=== PATIENT | female | born 1995 | race Caucasian/White ===

== ENCOUNTER 2016-10-22 19:20 | Emergency (ER) | payer BC ==
[2016-10-22] MEDS ORDERED: HYDROCODONE/ACETAMINOPHEN 5-325 MG TABLET PO ONE (20:02)
[2016-10-22] MEDS ORDERED: ONDANSETRON 4 MG TAB.RAPDIS SL ONE (20:02)
--- NOTE | 2016-10-22 20:04 | ER Document Report ---
ED Medical Screen (RME) - General Chief Complaint: BLOOD IN STOOL Stated Complaint: ABDOMINAL PAIN Time Seen by Provider: 10/22/16 19:59 Mode of Arrival: Ambulatory Information source: Patient TRAVEL OUTSIDE OF THE [place] IN LAST 30 DAYS: No - HPI Patient complains to provider of: Diarrhea, bloody stools, crampy abdominal pain Onset: Other - 3 days Onset/Duration: Gradual, Persistent Quality of pain: Achy, Cramping Severity: Moderate Pain Level: 3 Associated Symptoms: Diarrhea Notes: 10/22/16 20:03 Patient is a 21-year-old female who presents to the emergency room complaining of 3 day history of diarrhea with crampy abdominal pain and blood in stools Past Medical History Renal/ Medical History: Denies: Hx Peritoneal Dialysis Physical Exam - Vital signs Vitals: Temp Pulse Resp BP Pulse Ox 99.3 F 86 16 128/87 H 97 10/22/16 19:24 10/22/16 19:24 10/22/16 19:24 10/22/16 19:24 10/22/16 19:24 Course - Vital Signs Vital signs: Temp Pulse Resp BP Pulse Ox 99.3 F 86 16 128/87 H 97 10/22/16 19:26 10/22/16 19:26 10/22/16 19:26 10/22/16 19:26 10/22/16 19:26
[2016-10-22 20:31] LABS: ABSOLUTE BASOPHILS # (AUTO) 0.1 10^3/uL (0.0-0.2); ABSOLUTE EOSINOPHILS # (AUTO) 0.4 10^3/uL (0.0-0.6); ABSOLUTE LYMPHOCYTES (AUTO) 2.5 10^3/uL (0.5-4.7); ABSOLUTE MONOCYTES (AUTO) 0.7 10^3/uL (0.1-1.4); ABSOLUTE NEUT (AUTO) 5.4 10^3/uL (1.7-8.2); BASOPHILS % (AUTO) 0.7 % (0-2); EOSINOPHILS % (AUTO) 4.9 % (0-6); HEMATOCRIT 41.6 % (36.0-47.0); HEMOGLOBIN 14.1 g/dL (12.0-15.5); HGB HCT DIFFERENCE 0.7; LYMPHOCYTES % (AUTO) 27.7 % (13-45); MEAN CORPUSCULAR HEMOGLOBIN 29.6 pg (27.0-33.4); MEAN CORPUSCULAR HGB CONC 33.9 g/dL (32.0-36.0); MEAN CORPUSCULAR VOLUME 87 fl (80-97); MONOCYTES % (AUTO) 7.8 % (3-13); RED BLOOD COUNT 4.76 10^6/uL (3.72-5.28); RED CELL DISTRIBUTION WIDTH 13.3 % (11.5-14.0); SEGMENTED NEUTROPHILS % (AUTO) 58.9 % (42-78); WHITE BLOOD COUNT 9.1 10^3/uL (4.0-10.5)
[2016-10-22 20:36] LABS: APPEARANCE,URINE SLIGHTLY-CLOUDY; BILIRUBIN,URINE NEGATIVE (NEGATIVE); GLUCOSE, URINE NEGATIVE (NEGATIVE); KETONES,URINE TRACE mg/dL (NEGATIVE); LEUKOCYTE ESTERASE,URINE MODERATE (NEGATIVE); NITRITE,URINE NEGATIVE (NEGATIVE); PROTEIN,URINE NEGATIVE (NEGATIVE); URINE SPECIFIC GRAVITY 1.013; UROBILINOGEN,URINE NEGATIVE mg/dL (<2.0)
[2016-10-22 20:50] LABS: ALANINE AMINOTRANSFERASE 22 U/L (9-52); ALBUMIN 4.1 g/dL (3.5-5.0); ALKALINE PHOSPHATASE 108 U/L (38-126); ANION GAP 11 (5-19); ASPARTATE AMINO TRANSFERASE 20 U/L (14-36); BILIRUBIN,DIRECT 0.3 mg/dL (0.0-0.4); BILIRUBIN,TOTAL 0.6 mg/dL (0.2-1.3); BLOOD UREA NITROGEN 8 mg/dL (7-20); CALCIUM 9.6 mg/dL (8.4-10.2); CARBON DIOXIDE 24 mmol/L (22-30); CHLORIDE 103 mmol/L (98-107); CREATININE RESULT 0.64 mg/dL (0.52-1.25); GLUCOSE 88 mg/dL (75-110); LIPASE 70.4 U/L (23-300); POTASSIUM 4.4 mmol/L (3.6-5.0); SODIUM 138.3 mmol/L (137-145); TOTAL PROTEIN 7.3 g/dL (6.3-8.2)
[2016-10-22] MEDS ORDERED: CIPROFLOXACIN HCL 500 MG TABLET PO ONE (22:49)
[2016-10-22] MEDS ORDERED: DICYCLOMINE HCL 20 MG TABLET PO ONE (22:49)
[2016-10-22] MEDS ORDERED: ONDANSETRON ODT 4 MG TAB (6 TAB/DSPK) PO PRN (22:49)
--- NOTE | 2016-10-22 22:50 | ER Document Report ---
ED General - General Chief Complaint: BLOOD IN STOOL Stated Complaint: ABDOMINAL PAIN Time Seen by Provider: 10/22/16 19:59 Mode of Arrival: Ambulatory Notes: Patient is a 21 year old female who presents with complaint of diarrhea that began 3 days age. She initially had watery stools followed by abdominal cramping. this has since progressed to passing of some blood per rectum today. No fevers, Some nausea. no vomiting. No family history of Crohns or ulcerative colitis. No travel outside the TRAVEL OUTSIDE OF THE [place] IN LAST 30 DAYS: No Past Medical History - General Information source: Patient - Social History Smoking Status: Never Smoker Chew tobacco use (# tins/day): No Frequency of alcohol use: Occasional Drug Abuse: None Family History: Reviewed & Not Pertinent Patient has suicidal ideation: No Patient has homicidal ideation: No Renal/ Medical History: Denies: Hx Peritoneal Dialysis Physical Exam - Vital signs Vitals: Temp Pulse Resp BP Pulse Ox 99.3 F 86 16 128/87 H 97 10/22/16 19:24 10/22/16 19:24 10/22/16 19:24 10/22/16 19:24 10/22/16 19:24 Course - Re-evaluation Re-evalutation: 10/23/16 06:43 Patient's laboratory evaluation is unremarkable. Being that she is having some blood with her diarrhea I will cover for possible bacterial etiologies. She has not been on any recent antibiotics and therefore not concerned for C. difficile. I will place her on Cipro. Encouraged her to return to ER in 3 days if she still having any blood in her stool, any recurrent pain, or fevers. I encouraged her return to ER immediately if she has worsening pain, fevers, or increasing blood in her stool. Patient agrees with plan will be discharged home. Dictation of this chart was performed using voice recognition software; therefore, there may be some unintended grammatical errors. - Vital Signs Vital signs: Temp Pulse Resp BP Pulse Ox 99.2 F 84 17 128/84 H 100 10/22/16 23:13 10/22/16 23:13 10/22/16 23:13 10/22/16 23:13 10/22/16 23:13 - Laboratory Result Diagrams: 10/22/16 20:18 10/22/16 20:18 Laboratory results interpreted by me: 10/22/16 20:18 Urine Ketones TRACE H Ur Leukocyte Esterase MODERATE H Discharge - Discharge Clinical Impression: Hematochezia Diarrhea Qualifiers: Diarrhea type: unspecified type Qualified Code(s): R19.7 - Diarrhea, unspecified Condition: Stable Disposition: HOME, SELF-CARE Additional Instructions: Your blood work today showed no significant abnormalities. We are starting you on an antibiotic being that you are having some blood with the diarrhea. Please take this antibiotic as prescribed. Please return to the ER immediately if you develop fevers, vomiting, worsening abdominal pain, or worsening or increasing bloody stools. Please return to the ER in 3 days if your symptoms are not improving Prescriptions: Ciprofloxacin HCl [Cipro 500 mg Tablet] 500 mg PO BID #14 tablet Dicyclomine HCl [Bentyl 20 mg Tablet] 20 mg PO QID #40 tablet Forms: Return to Work
[2016-10-22 23:16] VITALS: BP 128/84
== END 2016-10-22 23:13 | disposition home or self-care (01) ==
LOC: ER 19:20
DX: K92.1 Melena (principal); R19.7 Diarrhea, unspecified; R19.5 Other fecal abnormalities
CPT/HCPCS: 99284; 36415; 87086; 83690; 84703; 85025; 80053; 81001; J3490; S0119

== ENCOUNTER 2017-10-08 03:50 | Emergency (ER) | payer BC ==
[2017-10-08] MEDS ORDERED: NORMAL SALINE 1000 ML 1,000 ML IV ONE ×2 (05:05→06:16)
[2017-10-08] MEDS ORDERED: ONDANSETRON HCL INJ/PF 4 MG/2 ML SDV IV ONE (05:18)
[2017-10-08 05:23] LABS: ABSOLUTE EOSINOPHILS # (AUTO) 0.1 10^3/uL (0.0-0.6); ABSOLUTE LYMPHOCYTES (AUTO) 1.2 10^3/uL (0.5-4.7); ABSOLUTE MONOCYTES (AUTO) 0.8 10^3/uL (0.1-1.4); ABSOLUTE NEUT (AUTO) 9.3 10^3/uL (1.7-8.2); BASOPHILS % (AUTO) 0.4 % (0-2); EOSINOPHILS % (AUTO) 0.6 % (0-6); HEMATOCRIT 40.6 % (36.0-47.0); HEMOGLOBIN 13.8 g/dL (12.0-15.5); LYMPHOCYTES % (AUTO) 10.5 % (13-45); MEAN CORPUSCULAR HEMOGLOBIN 29.3 pg (27.0-33.4); MEAN CORPUSCULAR HGB CONC 34.1 g/dL (32.0-36.0); MEAN CORPUSCULAR VOLUME 86 fl (80-97); MONOCYTES % (AUTO) 6.7 % (3-13); PLATELET COUNT 373 10^3/uL (150-450); RED BLOOD COUNT 4.73 10^6/uL (3.72-5.28); RED CELL DISTRIBUTION WIDTH 12.6 % (11.5-14.0); SEGMENTED NEUTROPHILS % (AUTO) 81.8 % (42-78); TOTAL CELLS COUNTED % (AUTO) 100 %; WHITE BLOOD COUNT 11.4 10^3/uL (4.0-10.5)
[2017-10-08 05:43] LABS: ALANINE AMINOTRANSFERASE 28 U/L (9-52); ALBUMIN 4.4 g/dL (3.5-5.0); ALKALINE PHOSPHATASE 96 U/L (38-126); ANION GAP 18 (5-19); ASPARTATE AMINO TRANSFERASE 23 U/L (14-36); BILIRUBIN,DIRECT 0.2 mg/dL (0.0-0.4); BILIRUBIN,TOTAL 0.7 mg/dL (0.2-1.3); BLOOD UREA NITROGEN 12 mg/dL (7-20); CALCIUM 10.1 mg/dL (8.4-10.2); CARBON DIOXIDE 19 mmol/L (22-30); CHLORIDE 104 mmol/L (98-107); GLUCOSE 135 mg/dL (75-110); POTASSIUM 3.7 mmol/L (3.6-5.0); SODIUM 140.8 mmol/L (137-145); TOTAL PROTEIN 7.3 g/dL (6.3-8.2)
--- NOTE | 2017-10-08 06:45 | ER Document Report ---
ED General - General Chief Complaint: Abdominal Pain Stated Complaint: ABDOMINAL PAIN Time Seen by Provider: 10/08/17 06:16 TRAVEL OUTSIDE OF THE [place] IN LAST 30 DAYS: No Past Medical History - Social History Smoking Status: Never Smoker Chew tobacco use (# tins/day): No Frequency of alcohol use: None Drug Abuse: None Family History: Reviewed & Not Pertinent Patient has suicidal ideation: No Patient has homicidal ideation: No Renal/ Medical History: Denies: Hx Peritoneal Dialysis Physical Exam - Vital signs Vitals: Temp Pulse Resp BP Pulse Ox 97.8 F 126 H 26 H 127/85 H 99 10/08/17 03:56 10/08/17 03:56 10/08/17 03:56 10/08/17 03:56 10/08/17 03:56 Course - Vital Signs Vital signs: Temp Pulse Resp BP Pulse Ox 97.8 F 93 18 109/62 100 10/08/17 03:56 10/08/17 05:10 10/08/17 06:00 10/08/17 06:00 10/08/17 06:00 - Laboratory Result Diagrams: 10/08/17 05:04 10/08/17 05:04 Laboratory results interpreted by me: 10/08/17 10/08/17 05:04 05:04 WBC 11.4 H Seg Neutrophils % 81.8 H Lymphocytes % 10.5 L Absolute Neutrophils 9.3 H Carbon Dioxide 19 L Glucose 135 H Discharge - Discharge Clinical Impression: Nausea & vomiting Qualifiers: Vomiting type: unspecified Instructions: Vomiting ([facility]), Abdominal Pain ([facility]) Additional Instructions: laboratory studies today physical examination showed no infectious etiology for your nausea vomiting also does not show any signs of surgical pathology for your nausea vomiting. Would recommend taking Tylenol Motrin for your pain control at home. Return to ER symptoms worsen follow-up with your primary care physician. Prescriptions: Ondansetron [Zofran Odt] 4 mg PO Q6 PRN #30 tab.rapdis PRN Reason: For Nausea/Vomiting Promethazine HCl [Phenergan 25 mg Tablet] 25 mg PO Q6 #30 tablet Forms: Return to Work
[2017-10-08] MEDS ORDERED: PROMETHAZINE HCL 25 MG TABLET PO ONE (07:04)
[2017-10-08 07:47] VITALS: BP 110/70
--- NOTE | 2017-10-08 14:45 | ER Document Report ---
ED General - General Chief Complaint: Abdominal Pain Stated Complaint: ABDOMINAL PAIN Time Seen by Provider: 10/08/17 06:16 TRAVEL OUTSIDE OF THE [place] IN LAST 30 DAYS: No - HPI Patient complains to provider of: Nausea vomiting abdominal cramps Notes: Patient coming in for nausea vomiting abdominal cramps. Patient states felt like her motion sickness prior to arrival. Patient denies any exacerbating or relieving factors. Patient resting healthy upon my evaluation states recently changed control tablets patient is unaware of her status at this time. Patient otherwise looks well-hydrated no recent travel no recent antibiotics. Past Medical History - Social History Smoking Status: Never Smoker Chew tobacco use (# tins/day): No Frequency of alcohol use: None Drug Abuse: None Family History: Reviewed & Not Pertinent Patient has suicidal ideation: No Patient has homicidal ideation: No Renal/ Medical History: Denies: Hx Peritoneal Dialysis Review of Systems - Review of Systems Constitutional: No symptoms reported EENT: No symptoms reported Cardiovascular: No symptoms reported Respiratory: No symptoms reported Gastrointestinal: Abdominal pain, Nausea, Vomiting Genitourinary: No symptoms reported Female Genitourinary: No symptoms reported Musculoskeletal: No symptoms reported Skin: No symptoms reported Hematologic/Lymphatic: No symptoms reported Neurological/Psychological: No symptoms reported -: Yes All other systems reviewed and negative Physical Exam - Vital signs Vitals: Temp Pulse Resp BP Pulse Ox 97.8 F 126 H 26 H 127/85 H 99 10/08/17 03:56 10/08/17 03:56 10/08/17 03:56 10/08/17 03:56 10/08/17 03:56 Interpretation: Normal - General General appearance: Appears well, Alert - HEENT Head: Normocephalic, Atraumatic Eyes: Normal Pupils: PERRL - Respiratory Respiratory status: No respiratory distress Chest status: Nontender Breath sounds: Normal Chest palpation: Normal - Cardiovascular Rhythm: Regular Heart sounds: Normal auscultation Murmur: No - Abdominal Inspection: Normal Distension: No distension Bowel sounds: Normal Tenderness: Nontender Organomegaly: No organomegaly - Back Back: Normal, Nontender - Extremities General upper extremity: Normal inspection, Nontender, Normal color, Normal ROM , Normal temperature General lower extremity: Normal inspection, Nontender, Normal color, Normal ROM , Normal temperature, Normal weight bearing. No: Fausto's sign - Neurological Neuro grossly intact: Yes Cognition: Normal Orientation: AAOx4 Carisa Coma Scale Eye Opening: Spontaneous Carisa Coma Scale Verbal: Oriented [place] Coma Scale Motor: Obeys Commands Carisa Coma Scale Total: 15 Speech: Normal Motor strength normal: LUE, RUE, LLE, RLE Sensory: Normal - Psychological Associated symptoms: Normal affect, Normal mood - Skin Skin Temperature: Warm Skin Moisture: Dry Skin Color: Normal Course - Re-evaluation Re-evalutation: 10/08/17 14:44 The patient presents with abdominal pain without signs of peritonitis or other life-threatening or serious etiology. The patient appears stable for discharge and has been instructed to return immediately if the symptoms worsen in any way , or in 8-12hr if not improved for re-evaluation. The patient has been instructed to return if the symptoms worsen or change in any way. That is why more likely a viral etiology. Patient had a nausea vomiting after medication given here however prior to discharge patient states to feeling a little nauseous however also asking for water.. Patient was given a dose of Phenergan patient discharged home - Vital Signs Vital signs: Temp Pulse Resp BP Pulse Ox 97.8 F 93 18 110/70 99 10/08/17 03:56 10/08/17 05:10 10/08/17 06:00 10/08/17 07:02 10/08/17 07:02 - Laboratory Result Diagrams: 10/08/17 05:04 10/08/17 05:04 Laboratory results interpreted by me: 10/08/17 10/08/17 05:04 05:04 WBC 11.4 H Seg Neutrophils % 81.8 H Lymphocytes % 10.5 L Absolute Neutrophils 9.3 H Carbon Dioxide 19 L Glucose 135 H Discharge - Discharge Clinical Impression: Nausea & vomiting Qualifiers: Vomiting type: unspecified Vomiting Intractability: unspecified Qualified Code( s): R11.2 - Nausea with vomiting, unspecified Condition: Stable Disposition: HOME, SELF-CARE Instructions: Abdominal Pain ([facility]), Vomiting ([facility]) Additional Instructions: laboratory studies today physical examination showed no infectious etiology for your nausea vomiting also does not show any signs of surgical pathology for your nausea vomiting. Would recommend taking Tylenol Motrin for your pain control at home. Return to ER symptoms worsen follow-up with your primary care physician. Prescriptions: Ondansetron [Zofran Odt] 4 mg PO Q6 PRN #30 tab.rapdis PRN Reason: For Nausea/Vomiting Promethazine HCl [Phenergan 25 mg Tablet] 25 mg PO Q6 #30 tablet Forms: Return to Work
== END 2017-10-08 07:53 | disposition home or self-care (01) ==
LOC: ER 03:50
DX: R11.2 Nausea with vomiting, unspecified (principal); R10.9 Unspecified abdominal pain; Z79.3 Long term (current) use of hormonal contraceptives
CPT/HCPCS: 99284; 96361; 96374; 36415; 84703; 85025; 80053; J2405; J7030